=== PATIENT | male | born 1955 ===

== ENCOUNTER 2017-05-31 09:01 | Emergency (ER) | payer MEDICAID ==
[2017-05-31 09:09] VITALS: BMI 28.3
[2017-05-31 09:16] VITALS: BP 123/74; PULSE 80; RESP 18; TEMP 98; O2SAT 99
--- NOTE | 2017-05-31 09:59 | C.PDOC ---
History Of Present Illness 62 y/o M c no PMHx p/w R ear abnormal sensation at night time x 3 weeks. States when he sleeps at night, feels like something is "walking" in his ear. He denies fever, stiff neck, swelling, pain, hearing loss, recent swimming, pain with ear pulling, discharge. Time Seen by Provider: 05/31/17 09:20 Chief Complaint (Nursing): ENT Problem Past Medical History Vital Signs: Last Vital Signs Temp 98.0 F 05/31/17 09:09 Pulse 80 05/31/17 09:09 Resp 18 05/31/17 09:09 BP 123/74 05/31/17 09:09 Pulse Ox 99 05/31/17 09:09 - Medical History PMH: HTN, Hyperlipidemia - [facility] Procedures EXCIS LESION OF MUSCLE (09/01/13) Family History: States: No Known Family Hx - Social History Hx Tobacco Use: No Hx Alcohol Use: No Hx Substance Use: No - Immunization History Hx Tetanus Toxoid Vaccination: No Hx Influenza Vaccination: Yes (2016) Hx Pneumococcal Vaccination: No Review Of Systems Except As Marked, All Systems Reviewed And Found Negative. Constitutional: Negative for: Fever Respiratory: Negative for: Shortness of Breath Physical Exam - Physical Exam Additional Physical Exam Comments: Gen: NAD Head: NC/AT Eyes: No conjunctivitis ENT: R TM normal. No foreign body or insect. No canal swelling or external ear swelling. Few loose flakes of cerumen. Neck: No rigidity. FROM. ED Course And Treatment O2 Sat by Pulse Oximetry: 99 Medical Decision Making Medical Decision Making: No abnormality, perhaps due to loose cerumen. ENT follow up, instructed to return to ED for fever, stiff neck, vomiting, pain. Disposition - Disposition Referrals: Jelani Irene MD [Staff Provider] - Disposition: HOME/ ROUTINE Disposition Time: 09:59 Condition: STABLE - Clinical Impression Clinical Impression: Abnormal ear sensation
== END 2017-05-31 10:05 | disposition home or self-care (01) ==
LOC: C.ER 09:01
DX: H93.91 Unspecified disorder of right ear (principal)

== ENCOUNTER 2017-07-22 08:56 | Emergency (ER) | payer MEDICAID ==
[2017-07-22 08:57] VITALS: BMI 28.3
[2017-07-22 09:05] VITALS: RESP 18; O2SAT 100
--- NOTE | 2017-07-22 10:34 | C.PDOC ---
History Of Present Illness 62 year old male presents to the ED for evaluation of bilateral elbow pain. Patient reports he fell down and landed on his elbows couple of weeks ago and ever since he started feeling pain. Patient now reports pain is radiating down to her fingers on B/L hands. Patient reports he has been soaking his elbows on warm water with salt. Patient denies LOC, headache, head injury, weakness, numbness, rash. Time Seen by Provider: 07/22/17 09:33 Chief Complaint (Nursing): Upper Extremity Problem/Injury History Per: Patient History/Exam Limitations: no limitations Onset/Duration Of Symptoms: Days Current Symptoms Are (Timing): Still Present Quality: "Pain" Recent travel outside of the [place]: No Additional History Per: Patient Past Medical History Reviewed: Historical Data, Nursing Documentation, Vital Signs Vital Signs: Last Vital Signs Temp 97.4 F L 07/22/17 09:03 Pulse 97 H 07/22/17 09:03 Resp 18 07/22/17 09:03 BP 143/87 07/22/17 09:03 Pulse Ox 100 07/22/17 10:42 - Medical History PMH: HTN, Hyperlipidemia Surgical History: No Surg Hx - [facility] Procedures EXCIS LESION OF MUSCLE (09/01/13) Family History: States: Unknown Family Hx - Social History Hx Tobacco Use: No Hx Alcohol Use: No Hx Substance Use: No - Immunization History Hx Tetanus Toxoid Vaccination: No Hx Influenza Vaccination: Yes (2017) Hx Pneumococcal Vaccination: No Review Of Systems Constitutional: Negative for: Fever, Chills Cardiovascular: Negative for: Chest Pain Respiratory: Negative for: Shortness of Breath Gastrointestinal: Negative for: Abdominal Pain Musculoskeletal: Positive for: Arm Pain, Hand Pain Skin: Negative for: Rash Neurological: Negative for: Weakness, Numbness Physical Exam - Physical Exam Appears: Non-toxic, No Acute Distress Skin: Normal Color, Warm, Dry Head: Atraumatic, Normacephalic Eye(s): bilateral: Normal Inspection Nose: No Discharge Oral Mucosa: Moist Neck: Normal ROM, Supple Extremity: Normal ROM, Tenderness (B/L bony aspects of elbows), Capillary Refill (< 2 seconds), Swelling (B/L bony aspects of elbows) Pulses: Left Radial: Normal, Right Radial: Normal Neurological/Psych: Oriented x3, Normal Speech, Normal Motor, Normal Sensation Gait: Steady ED Course And Treatment O2 Sat by Pulse Oximetry: 100 (ON RA) Pulse Ox Interpretation: Normal - Other Rad B/L elbow X-Ray X-Ray: Interpreted by Me, Viewed By Me Interpretation: Preliminary read as no fractire but chronic arthritis and tendonitis observed Medical Decision Making Medical Decision Making: Impression: B/L elbow pain s/p falling weeks ago Plan: * B/L X-Ray on elbows * Motrin 400 mg PO * Tylenol 975 mg PO On reassessment, patient is resting comfortably, and is in no acute distress. Patient was instructed to follow up with physician/clinic in 1-2 days for further evaluation. Disposition Counseled Patient/Family Regarding: Studies Performed, Diagnosis, Need For Followup, Rx Given - Disposition Referrals: [facility] [Outside] Disposition: HOME/ ROUTINE Disposition Time: 10:32 Condition: STABLE Additional Instructions: Siga en la clinica, con [employer]. Prescriptions: Ibuprofen [Motrin] 600 mg PO TID #15 tab Instructions: Contusion (DC) Forms: Gen Discharge Inst [place], [facility] ([place]uan), Work Excuse - POA Present On Arrival: None - Clinical Impression Clinical Impression: Bursitis, Contusion - Scribe Statement The provider has reviewed the documentation as recorded by the Scribe Nicola Bean All medical record entries made by the Scribe were at my direction and personally dictated by me. I have reviewed the chart and agree that the record accurately reflects my personal performance of the history, physical exam, medical decision making, and the department course for this patient. I have also personally directed, reviewed, and agree with the discharge instructions and disposition.
[2017-07-22 10:49] VITALS: BP 137/72; PULSE 78; TEMP 98.4
--- NOTE | 2017-07-22 13:08 | RAD ---
PROCEDURE: Bilateral Elbow Radiographs. HISTORY: fall, remote COMPARISON: None. FINDINGS: BONES: Right Elbow: Bone alignment and mineralization are normal. No acute fracture. There is a large olecranon spur. Left Elbow: Bone alignment and mineralization are normal. No acute fracture. There is a large olecranon spur. JOINTS: Right Elbow: There is mild degenerative osteoarthritis. Left Elbow: There is mild degenerative osteoarthritis. JOINT EFFUSION: Right Elbow: None. Left Elbow: None. SOFT TISSUES: Right Elbow: There are multifocal calcifications at the insertion of triceps tendon to the olecranon process. Left Elbow: There is a large lobular and small round calcification in the distal presumable triceps tendon. OTHER FINDINGS: None. IMPRESSION: No acute fracture or dislocation. Findings are most compatible with bilateral olecranon bursitis. 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
== END 2017-07-22 10:40 | disposition home or self-care (01) ==
LOC: C.ER 08:56
DX: M71.522 Other bursitis, not elsewhere classified, left elbow (principal); M71.521 Other bursitis, not elsewhere classified, right elbow; S50.02XA Contusion of left elbow, initial encounter; S50.01XA Contusion of right elbow, initial encounter; W18.30XA Fall on same level, unspecified, initial encounter

== ENCOUNTER 2018-04-24 09:15 | Outpatient (CLI) | payer MEDICAID | END 2018-04-24 09:16 | disposition home or self-care (01) | LOC: C.LAB 09:15 | DX: N18.3 Chronic kidney disease, stage 3 (moderate) (principal) ==